=== PATIENT | male | born 1945 | race Caucasian/White ===

== ENCOUNTER 2024-01-13 08:51 | Day surgery (SDC) | payer OTHER ==
[2024-01-07 12:16] VITALS: BMI 27.6
[2024-01-13] MEDS ORDERED: CARBACHOL 0.01% INTRA-OCULAR 1.5 ML VIAL ONE (09:23)
[2024-01-13] MEDS ORDERED: NEO/POLYMYX B SULF/DEXAMETH OPHTHALMIC 5ML BOTTLE ONE (09:23)
[2024-01-13] MEDS ORDERED: BSS (NA/CA/MG/K) BALANCED SALT SOLUTION OPHTH SOLN 15 ML BOTTLE ONE (09:23)
[2024-01-13] MEDS ORDERED: LIDOCAINE 1% P/F 10 MG/ML VIAL ONE (09:23)
[2024-01-13] MEDS ORDERED: TETRACAINE 0.5% OPHTH SOLN 2 ML BOTTLE ONE (09:23)
[2024-01-13] MEDS: PHENYLEPHRINE 2.5% OPTHALMIC DROP 2ML BOTTLE ONE (10:20)
[2024-01-13] MEDS: CYCLOPENTOLATE 2% OPHTH SOLN 2 ML BOTTLE ONE (10:20)
[2024-01-13] MEDS: TROPICAMIDE 1% OPHTH SOLN 15 ML BOTTLE ONE (10:20)
[2024-01-13] MEDS: CIPROFLOXACIN 0.3% EYE DROPS 5 ML BOTTLE ONE (10:20)
[2024-01-13] MEDS ORDERED: MIDAZOLAM HCL 2 MG/2 ML SINGLE DOSE VIAL ONE ×2 (11:53→12:19)
[2024-01-13 12:18] VITALS: RESP 18
[2024-01-13 13:22] VITALS: BP 108/68; PULSE 71; TEMP 77
== END 2024-01-13 13:20 | disposition home or self-care (01) ==
LOC: FASU 08:51
PROVIDERS: ATTEND Ophthalmology
PROC: 08RK3JZ Replacement of Left Lens with Synthetic Substitute, Percutaneous Approach (ICD-10-PCS; principal; 2024-01-13 12:15)
DX: H26.8 Other specified cataract (principal); H21.542 Posterior synechiae (iris), left eye
CPT/HCPCS: 66982; V2632